=== PATIENT | female | born 1955 | race Caucasian/White ===

== ENCOUNTER 2016-12-01 07:39 | Emergency (ER) | payer OTHER ==
[~2016-12-01] VITALS: Ht 170.2 cm; Wt 77.1 kg
[~2016-12-01 07:39] MED LIST: AMBIEN5 M1 PO; DIFLUCAN150 MG PO; MELOXICAM15 MG PO; VIGAMOX 0.60 GTT/1 B IO; ZITHROMAX Z-PA250 M1 PO
[2016-12-01 07:48] VITALS: BP 136/79
--- NOTE | 2016-12-01 08:12 | ED GENERAL ADULT ---
History of Present Illness General Chief Complaint: Foot or Ankle Injury Stated Complaint: L ANKLE PAIN S/P FALL Source: patient, family Exam Limitations: no limitations Vital Signs & Intake/Output Vital Signs & Intake/Output Vital Signs Date Time Temp Pulse Resp B/P Pulse O2 O2 Flow FiO2 Ox Delivery Rate 12/01 0748 96.7 68 20 136/79 98 Room Air Room Air Allergies Coded Allergies: diphenhydramine (From BENADRYL) (Intermediate, HYPERACTIVITY 12/01/16) Triage Note: PT TO ED WITH C/O LEFT ANKLE PAIN "FOOT FELL ASLEEP AND GOT UP AND TWISTED L ANKLE LAST NIGHT". ICE PACK APPLIED, PT REFUSING WHEELCHAIR OR MEDS AT THIS TIME. PT TOOK MOTRIN LAST NIGHT. Triage Nurses Notes Reviewed? yes HPI: 61 year old woman with past medical history of arthritis seen for evaluation of left ankle pain. She was sitting on the couch yesterday when around 10am she stood up to walk and noticed her left foot was "numb" and was unable to bear weight. She fell down to the ground without any headstrike or any impact injuries where she laid for roughly 10 minutes waiting for the feeling to come back to her foot and the pain to subside. She took 800mg of ibuprofen for pain relief and applied ice to the extremity but reports no improvement. This morning she awoke and the ankle was grossly swollen and persistently painful for which she drove herself to the [facility] for further evaluation. (ARACELY CASTILLO MD) Reconcile Medications Diclofenac Sodium 75 MG TABLET.DR 1 TAB PO BID ANKLE PAIN Tramadol HCl 50 MG TABLET 1 TAB PO Q6P PRN ANKLE SPRAIN Zolpidem Tartrate (Ambien) 5 MG TABLET 1 TAB PO QPM SLEEP (Reported) (TOSHIA AMOR,HOLLIS Kern) Past History Travel History Traveled to [place] past 21 day No Medical History Any Pertinent Medical History? see below for history Neurological: NONE EENT: NONE Cardiovascular: NONE Respiratory: NONE Gastrointestinal: NONE Hepatic: NONE Renal: NONE Musculoskeletal: NONE Psychiatric: NONE Endocrine: NONE Blood Disorders: PE, ARELIS FILTER Cancer(s): ovarian cancer STUFFER/Reproductive: NONE Surgical History Surgical History: non-contributory Psychosocial History What is your primary language Vincentian Tobacco Use: Never used ETOH Use: occasional use Illicit Drug Use: denies illicit drug use Family History Hx Contributory? No (ARACELY CASTILLO MD) Review of Systems Review of Systems Constitutional: Reports: see HPI. (ARACELY CASTILLO MD) Physical Exam Physical Exam General Appearance: well developed/nourished, no apparent distress, alert, awake , comfortable Comments: General - well developed, well nourished woman in no acute distress HEENT - NCAT, PERRL, EOMI, anicteric sclera Ext: -LLE: 2+ nonpitting ankle swelling without overlying ecchymosis, no brea tenderness, FROM of ankle, tenderness to dorsiflextion/plantarflexion/inversion, staggered gait, sensation intact, normal pulses, no deformity Core Measures ACS in differential dx? No CVA/TIA Diagnosis: No Severe Sepsis Present: No Septic Shock Present: No (ARACELY CASTILLO MD) Progress Differential Diagnoses I considered the following diagnoses in my evaluation of the patient: ligamentous strain, bone fracture Plan of Care: Orders Procedure Date/time Status Durable Medical Equipment 12/01 820 Active Physical examination of the affected joint is suggestive of a ligamentous strain. Per [place] criteria she does not demonstrate any bony prominence and is able to weight bear on the extremity as tolerated. THere is no obvious deformity of the ankle. This however does not rule out the low possibility of a bony evulsion fracture in the extremity. Given the low index of suspicion for fracture an x-ray will be deffered at this time. Patient is to be discharged to home with instruction to return to full activity as tolerated, maintain an airsplint to the affected join, utilize NSAIDs for pain relief, and to elevate the extremity when not ambulating. She is followed by an orthopedist for her back pain issues, she was instructed to follow up with them should the pain not improve within the next few weeks for further evaluaton. (ARACELY CASTILLO MD) Initial ED EKG: none (ARACELY CASTILLO MD) Departure Departure Disposition: HOME OR SELF CARE Condition: Stable Clinical Impression Primary Impression: Strain of ligament Referrals: DORENE AMOR,MIKKI Fraga (PCP/Family) Departure Forms: Customer Survey General Discharge Information (ARACELY CASTILLO MD) Departure Prescriptions: Current Visit Scripts Diclofenac Sodium 1 TAB PO BID #60 TAB Tramadol HCl 1 TAB PO Q6P PRN ANKLE SPRAIN #15 TAB Resident Co-Sign Statement Statement: ED Attending supervision documentation- [x] I saw and evaluated the patient. I have also reviewed all the pertinent lab results and diagnostic results. I agree with the findings and the plan of care as documented in the Resident's documentation. [] I have reviewed the ED Record and agree with the Resident's documentation. [] Additions or exceptions (if any) to the Resident's note and plan are summarized below: [] (TOSHIA AMRO,HOLLIS Kern) Critical Care Note Critical Care Note Critical Care Time: non-applicable (ANNA AMOR,ARACELY)
[2016-12-01] MEDS ORDERED: DICLOFENAC SODI75 M2 PO (08:24)
[2016-12-01] MEDS ORDERED: TRAMADOL HCL50 M1 PO (08:24)
== END 2016-12-01 08:32 ==
LOC: ERH 07:39
DX: S96.912A Strain of unspecified muscle and tendon at ankle and foot level, left foot, initial encounter (principal); W19.XXXA Unspecified fall, initial encounter; Y93.01 Activity, walking, marching and hiking